=== PATIENT | male | born 1945 | race Hispanic/Latino ===

== ENCOUNTER → 2018-05-04 | Outpatient (CLI) | payer OTHER, MEDICARE ==
[~2018-05-04] MED LIST: FAMO20TA8 PO; HYDR-4153 PO; HYDR12.530 PO; METO100T14 PO; NAPR220C15 PO; NIFE20CA PO; NITR0.4T SL
== END | disposition home or self-care (01) ==
LOC: SHCH 10:00
PROVIDERS: ATTEND Internal Medicine Cardiovascular Disease
DX: R06.00 Dyspnea, unspecified (principal)
CPT/HCPCS: 93306

== ENCOUNTER → 2020-03-09 | Outpatient (CLI) | payer OTHER, MEDICARE | END | disposition home or self-care (01) | LOC: SHCH 10:36 | PROVIDERS: ATTEND Internal Medicine Cardiovascular Disease | DX: I25.10 Atherosclerotic heart disease of native coronary artery without angina pectoris (principal) | CPT/HCPCS: 93306 ==

== ENCOUNTER → 2023-07-18 | Outpatient (CLI) | payer OTHER, MEDICARE ==
[~2023-07-18] MED LIST changes: -HYDR-4153 PO; +HYDR25TA67 PO
[2023-07-18 13:43] LABS: ALBUMIN 3.5 g/dL (3.5-5.0); BILIRUBIN,TOTAL 0.3 mg/dL (0.2-1.0); CREATININE 1.4 mg/dL (0.5-1.5); POTASSIUM 3.7 mmol/L (3.5-5.1); TOTAL PROTEIN, SERUM 7.4 g/dL (6.0-8.3)
== END | disposition home or self-care (01) ==
LOC: LAB 08:45
PROVIDERS: ATTEND Internal Medicine Cardiovascular Disease
DX: E78.5 Hyperlipidemia, unspecified (principal)
CPT/HCPCS: 36415; 80053; 80061

== ENCOUNTER → 2023-08-26 | Outpatient (CLI) | payer OTHER, MEDICARE | END | disposition home or self-care (01) | LOC: SHCH 08:03 | PROVIDERS: ATTEND Internal Medicine Cardiovascular Disease | DX: I10 Essential (primary) hypertension (principal) | CPT/HCPCS: 93975 ==

== ENCOUNTER → 2024-01-01 | Outpatient (CLI) | payer OTHER, MEDICARE ==
[~2024-01-01] MED LIST changes: -NIFE20CA PO; +NIFE20CA9 PO
[2024-01-01 12:58] LABS: ALBUMIN 3.3 g/dL (3.5-5.0); BILIRUBIN,TOTAL 0.7 mg/dL (0.2-1.0); CREATININE 1.2 mg/dL (0.5-1.3); POTASSIUM 4.3 mmol/L (3.5-5.1); TOTAL PROTEIN, SERUM 6.7 g/dL (6.0-8.3)
== END | disposition home or self-care (01) ==
LOC: LAB 09:01
PROVIDERS: ATTEND Physician Assistant
DX: I10 Essential (primary) hypertension (principal); E78.5 Hyperlipidemia, unspecified
CPT/HCPCS: 36415; 80053; 80061

== ENCOUNTER → 2024-07-10 | Outpatient (CLI) | payer OTHER, MEDICARE | END | disposition home or self-care (01) | LOC: SHCH 14:12 | PROVIDERS: ATTEND Internal Medicine Cardiovascular Disease | DX: I08.0 Rheumatic disorders of both mitral and aortic valves (principal); I11.9 Hypertensive heart disease without heart failure | CPT/HCPCS: 93306 ==

== ENCOUNTER → 2024-07-11 | Outpatient (CLI) | payer OTHER, MEDICARE ==
[2024-07-11] MEDS: REGADENOSON 0.4 MG/5 ML PF SYG IVP ONE (13:53)
--- NOTE | 2024-07-11 18:18 | HMCSR ---
APPROVED REPORT Height: 6 ft 5in Weight: 201 lbs TEST INDICATIONS Hypertension/HDD, CAD The imaging protocol used to acquire images was Rest Tc-99m/stress Tc-99m 1 day Consent: The procedure was explained and understood by the patient. Informerd consent was witnessed Rachelle BROWNLEE RN First, low dose rest was performed then high dose stress. RESTING DATA: The resting ekg shows: NSR, deep TWI I, aVl,v3-v6 Rest SPECT myocardial perfusion imaging was performed in supine position 71 minutes following the int ravenous injection of 10.5 mCi of Tc-99 Sestamibi. Time of rest injection: 09:16: Date: 07/11/2024 Time of rest imagin:27: Date: 07/11/2024 PHARMACOLOGIC STRESS: Pharmacologic stress test was performed by injecting regadenoson 0.4 mg IV push followed by the intra venous injection of 29.5 mCi of Tc-99 Sestamibi. Time of stress injection: 11:06: Date: 07/11/2024 Time of stress imagin Date: 07/11/2024 Heart Rate at time of stress injection: 62 bpm. Gated Stress SPECT was performed 70 minutes after stress injection. The images were gated to evaluate regional wall motion and calculate left ventricular ejection fracti on. STRESS DETAILS Reason for Termination: Infusion complete Stress Symptoms: Coughing Max HR Achieved: 86 bpm % of APMHR Achieved: 60 Max Blood Pressure: 131/86 mmHg Stress ECG: NSR, deep TWI I, aVl,v3-v6 Study quality was good. Lung uptake was Normal. Artifact: No artifact IMPRESSION Normal pharmacologic nuclear stress test. Conclusion Normal perfusion. LVEF 43%.
== END | disposition home or self-care (01) ==
LOC: SHCH 08:28
PROVIDERS: ATTEND Internal Medicine Cardiovascular Disease
DX: I10 Essential (primary) hypertension (principal); I25.10 Atherosclerotic heart disease of native coronary artery without angina pectoris
CPT/HCPCS: 78452; 93017; J2785; A9500 ×2